=== PATIENT | male | born 1960 | race Caucasian/White ===

== ENCOUNTER 2018-02-04 12:32 | Emergency (ER) | payer MEDICAID, SELFPAY ==
[2018-02-04 12:33] VITALS: BP 123/74; PULSE 85; RESP 16; TEMP 36.8; O2SAT 95; BMI 26.8
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
--- NOTE | 2018-02-04 13:44 | ED.RN ---
message left for cm regarding pt unable to fill scripts d/t being homeless and no money. recharger aware
[2018-02-04] MEDS: predniSONE 20 MG Tablet 40 MG PO (14:22)
--- NOTE | 2018-02-04 14:22 | NURSING ---
cm in to see pt and give instructions on resources to have scripts filled. pt given 2 doses prednisone
--- NOTE | 2018-02-04 14:33 | CASEMGMT ---
Social Work Note SW received referral from PERRY Joseph about pt being homeless and for resources regarding filling scripts. SW in to meet with pt. SW introduced self and role at [facility]. Pt alert and orientated x4. Pt states that he has utilized [facility] before and states that he can't go back there due to using them too much. SW provided pt with information on [employer] and prescription assistance resources. Pt states that he has been at the [facility] before and won't go back there. Pt states that he is also working and will be moving into his new place in a few weeks. SW also provided pt with list of Food panties and resources in the event pt is struggling to get food. Pt thanked this SW. Pt states that he will be following up with [employer] on Tuesday. Pt denied additional needs or concerns. Celia Turner AOC DIRECTOR INTELLIGENCE OFFICER, AUTOMOTIVE PROJECT ENGINEER
== END 2018-02-04 14:24 | disposition home or self-care (01) ==
LOC: ED 13:22
PROVIDERS: Emergency Provider Emergency Medicine; Family Provider Family Medicine; PCP Family Medicine
DX: M79.89 Other specified soft tissue disorders (principal); Z76.0 Encounter for issue of repeat prescription; I77.6 Arteritis, unspecified
CPT/HCPCS: 99283

== ENCOUNTER 2018-06-04 00:34 | Emergency (ER) | payer MEDICAID, SELFPAY ==
[2018-06-04 00:35] VITALS: BP 146/101; PULSE 87; RESP 18; TEMP 37; O2SAT 94; BMI 28.3
--- NOTE | 2018-06-04 01:54 | ED.DCSUM_ITS ---
- ER Visit Summary Date of Service: 06/04/18 Chief Complaint: Bronchitis History of Present Illness: The patient is a 58 M who presents with a URI-like illness and bronchitis. He states he has been ill for 3 weeks with congestion rhinorrhea productive cough. He was nauseated tonight. He states he overslept for work because he was not feeling well. He states he is here because he needs a work note and also just needs something for his illness since he is not getting better. No fevers. No pain. Physical Examination: Afebrile vitals are normal Moist mucous membranes Heart regular rate and rhythm Lungs clear Abdomen soft Alert Test Results: Not indicated Emergency Department Course and Treatment: Given 3 weeks of persistent symptoms will trial a course of azithromycin. He was given Zofran here for nausea and a prescription for short course of the same. He understands to return for new or worsening symptoms. He was discharged. Treatment Plan: [] Disposition: Discharge Impression: Bronchitis This note was generated with [employer] dictation software. It may contain incorrect words, spelling, and punctuation that were not noted in review of the chart prior to signing ED Disposition - Plan for ED Patient: Chief Complaint: Cold Sx Referrals: Fahad Navarrete MD [Primary Care Provider] -
--- NOTE | 2018-06-04 01:54 | ED.DEP ---
ED Disposition - Plan for ED Patient: Chief Complaint: Cold Sx Instructions: Acute Bronchitis Prescriptions: Ondansetron [Zofran Odt] 4 mg PO Q8H PRN PRN #10 tab PRN Reason: Nausea Azithromycin [Zithromax Z-Luther] 250 mg PO UD #1 box Referrals: Fahad Navarrete MD [Primary Care Provider] -
[2018-06-04 02:02] VITALS: RESP 18
[2018-06-04] MEDS: Ondansetron ODT 4 MG Tablet PO (02:02)
--- OUTSIDE RECORDS SUMMARY | 2018-09-06 12:44 | XMS RPT_ITS ---
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 rewrite prednisone rx (had Rx stolen) 10-20 daily discussed and will start methotrexate 6 pills weekly take all at once Tuesday evening folic acid 1 mg daily -in the AM - this will reduce side effects of MTX see me again in about 6 weeks will check labs and monitor response then Santa Pickens MD, PhD Referring Provider: SANTA PICKENS [[id number]] Allergies As of Date: 01/16/2018 Noted Allergy Reaction environmental [Other] 02/15/2006 Date Reviewed: 01/16/2018 Reviewed by: Amanda Jenkins Ma - Fully Assessed Primary Visit Diagnosis:Rheumatoid arthritis of multiple sites without organ or system involvement with positive rheumatoid factor (HCC) [M05.79] Order(s):predniSONE (DELTASONE) 10 mg tabletTake 1 tablet by mouth once daily. can take an extra pill as neededDisp: 50 tabletRfl: 5 [START ON 01/20/2018] methotrexate 2.5 mg tabletTake 6 tablets by mouth every Tuesday. increase when directedDisp: 40 tabletRfl: 11 folic acid 1 mg tabletTake 1 tablet by mouth once daily.Disp: 30 tabletRfl: 11 Prescriptions as of 01/16/2018 Sig: PREDNISONE 10 MG TABLET Take 1 tablet by mouth once d* METHOTREXATE SODIUM 2.5 MG TA* Take 6 tablets by mouth every* FOLIC ACID 1 MG TABLET Take 1 tablet by mouth once d* TYLENOL ARTHRITIS ORAL Take by mouth. Take 2 tablet* Problem List As Of Date 01/16/2018 Noted Resolved HYPERLIPIDEMIA NEC/NOS [E78.5] PEPTIC ULCER NOS [533.9] ALCOHOL ABUSE-UNSPEC [F10.10] CARPAL TUNNEL SYNDROME [G56.00] INVALID FOR* LUMBAGO [M54.5] INVALID FOR* SURGERY FOLLOWUP NOS [Z09] INVALID FOR* Disorder of male genital organs [N50.9] More... RESTLESS LEGS SYNDROME [G25.81] Degeneration of lumbosacral intervertebral disc* More... Elevated rheumatoid factor [R76.8] INVALID FOR* Arthralgia [M25.50] INVALID FOR* Leukocytosis [D72.829] INVALID FOR* Malignant neoplasm of descended testis (HCC) [C*INVALID FOR* Rheumatoid arthritis of multiple sites without *INVALID FOR* Other instructions from your clinician: will rewrite prednisone rx (had Rx stolen) 10-20 daily discussed and will start methotrexate 6 pills weekly take all at once Tuesday evening folic acid 1 mg daily -in the AM - this will reduce side effects of MTX see me again in about 6 weeks will check labs and monitor response then Santa Pickens MD, PhD Prescriptions ordered this encounter Disp Refills Start End PREDNISONE 10 MG TABLET 50 t* 5 01/16/2018 Route: ORAL Sig: Take 1 tablet by mouth once daily. can take an extra pill as needed METHOTREXATE SODIUM 2.5 MG TABLET 40 t* 11 01/20/2018 Route: ORAL Sig: Take 6 tablets by mouth every Tuesday. increase when directed FOLIC ACID 1 MG TABLET 30 t* 11 01/16/2018 Route: ORAL Sig: Take 1 tablet by mouth once daily. Medications Discontinued During This Encounter predniSONE (DELTASONE) 10 mg tablet 14 t* 0 12/29/2016 01/16/2018 Route: ORAL Sig: Take 1 tablet by mouth once daily for 14 days. Disc: Duplicate Entry predniSONE (DELTASONE) 10 mg tablet 30 t* 3 11/03/2017 01/16/2018 Route: ORAL Sig: Take 1 tablet by mouth once daily. Disc: Reason for discontinue is not on file. Disposition: Return in about 6 weeks (around 02/27/2018). Follow-up and Disposition History Recorded Encounter Status:Closed by NELIA DELONG, SANTA PHD on 01/16/18 XR CHEST 2V FRONTAL/LAT Observed: 10/26/2017 Status: F Source: [place] 3:[address] [facility] REPOSITORY * * *Final Report* * * DATE OF EXAM: Oct 26 2017 3:14PM [id number] - XR CHEST 2V FRONTAL/LAT / PROCEDURE REASON: multiple diagnoses * * * * Physician Interpretation * * * * PA and lateral views of the chest are reviewed without previous comparison films. The cardiac size is not enlarged. The lung pascual are clear. There is no evidence of pleural fluid. The bony thorax appears intact. IMPRESSION: No acute process. Pad Extractor Tender: PSCB Transcribe Date/Time: Oct 26 2017 4:15P Dictated by : GOYO THORNE MD This examination was interpreted and the report reviewed and electronically signed by: GOYO THORNE MD on Oct 26 2017 4:16PM EST [id number] PROGRESS Observed: 10/26/2017 Status: COMPLETED Source: [place] 3:03 PM [facility] REPOSITORY HNO ID: [id number] Author: Ron Hanks (Rt), Tech Service: (none) Author Type: Theatrical Dresser Type: Progress Notes Filed: 10/26/2017 3:15 PM Note Text: Radiology Service Progress Note PATIENT NAME: Elizabeth Garland DATE OF SERVICE: October 26, 2017 TIME: 3:03 PM PATIENT IDENTITY VERIFICATION COMPLETED USING TWO (2) METHODS: Patient confirmed name verbally and Date of . PATIENT GENDER DATA: Male PATIENT RELEVANT IMPLANT DATA REVIEWED: Not Applicable RADIOLOGY DEPARTMENT: General X-ray: Exam(s) Completed: Chest X-Ray PERIPHERAL IV DATA: Not applicable SIGNED BY: RT Georgette October 26, 2017 3:03 PM CBC AND DIFFERENTIAL Collected: 09/13/2017 Status: F Source: [place] 3:17 PM [facility] REPOSITORY TYPE CODE TESTS RESULT OUT OF REFERENCE UNITS RANGE LAB WBC 3.70-11.00 k/uL WBC High 13.51 LAB RBC 4.20-6.00 m/uL RBC 4.87 LAB HGB 13.0-17.0 g/dL Hemoglobin 14.2 LAB HCT 39.0-51.0 % Hematocrit 44.3 LAB MCV 80.0-100.0 fL MCV 91.0 LAB MCH 26.0-34.0 pG MCH 29.2 LAB MCHC 30.5-36.0 g/dL MCHC 32.1 LAB RDWCV 11.5-15.0 % RDW-CV 14.2 LAB PLTCT 150-400 k/uL Platelet Count 397 LAB MPV 9.0-12.7 fL MPV 10.7 LAB ANEUT % Neut% 71.4 LAB AANEUT 1.45-7.50 k/uL Abs Neut High 9.64 LAB ALYMP % Lymph% 20.9 LAB AALYMP 1.00-4.00 k/uL Abs Lymph 2.83 LAB AMONO % Piatt% 5.7 LAB AAMONO <0.87 k/uL Abs Piatt 0.77 LAB AEOS % Eosin% 1.5 LAB AAEOS <0.46 k/uL Abs Eosin 0.20 LAB ABASO % Baso% 0.5 LAB AABASO <0.11 k/uL Abs Baso 0.07 LAB AUNRBC 0 /100 WBC NRBCs 0.0 LAB ABNRBC <0.01 k/uL Absolute nRBC <0.01 LAB DTYP DTYPE Auto Diff Performed By: #### CBCDIF, CMP, HREMOP, INFTBG, CCP #### [facility] [address] [place] [id number] COMP METABOLIC PANEL Collected: 09/13/2017 Status: F Source: [place] 3:[address] [facility] REPOSITORY TYPE CODE TESTS RESULT OUT OF REFERENCE UNITS RANGE LAB TP 6.3-8.0 g/dL Protein, Total 7.3 LAB ALB 3.9-4.9 g/dL Albumin 3.9 LAB CA 8.5-10.2 mg/dL Calcium, Total 9.6 LAB TBIL 0.2-1.3 mg/dL Bilirubin, Total 0.2 LAB ALKP 36-108 U/L Alkaline Phosphatase 85 LAB AST 14-40 U/L AST 18 LAB GLU 74-99 mg/dL Glucose 84 Result Comment: The [place] Diabetes Association (ADA) provides guidance for cutoff values for fasting glucose and random glucose. The ADA defines fasting as no caloric intake for at least 8 hours. Fas ting plasma glucose results between 100 to 125 mg/dL indicate increased risk for diabetes (prediabetes). Fasting plasma glucose results greater than or equal to 126 mg/dL meet the criteria for diagnosis of diabetes. In the absence of unequivocal hyperglycemia, results should be confirmed by repeat testing. In a patient with classic symptoms of hyperglycemia or hyperglycemic crisis, random plasma glucose results greater than or equal to 200 mg/dL meet the criteria for diagnosis of diabetes. Reference: Standards of Medical Care in Diabetes 2016, [place] [employer] Association. Diabetes Care. 2016.39(Suppl 1). LAB BUN 9-24 mg/dL BUN 18 LAB CRET 0.73-1.22 mg/dL Creatinine 0.90 LAB NA 136-144 mmol/L Sodium 141 LAB K 3.7-5.1 mmol/L Potassium 4.3 LAB CL 97-105 mmol/L Chloride 103 LAB CO2 22-30 mmol/L CO2 24 LAB AGAP 9-18 mmol/L Anion Gap 14 LAB ALT 10-54 U/L ALT 12 LAB GFRAA eGFR- Amer. >60 LAB GFRNAA . eGFR-All Other Races >60 Result Comment: eGFR (Estimated GFR) Units of measure: mL/min/1.73 meters squared eGFR is derived from the reexpressed MDRD Study equation using the following parameters: serum creatinine, age, gender and race. The creatinine assay has been calibrated to be traceable to IDMS. An eGFR <60 mL/min/1.73m2 for >3 months is consistent with chronic kidney disease. Refer to KDOQI guidelines for clinical interpretation. In patients with unstable renal function, e.g. those with acute kidney injury, the eGFR may not accurately reflect actual GFR. Performed By: #### CBCDIF, CMP, HREMOP, INFTBG, CCP #### [facility] [place] [address] HEPATITIS REMOTE PANEL Collected: 09/13/2017 Status: F Source: [place] 3:17 PM [facility] REPOSITORY TYPE CODE TESTS RESULT OUT OF REFERENCE UNITS RANGE LAB AHBCOT Negative Hep B Core Ab,Total Negative LAB AHCV Negative Hepatitis C Ab Negative IA LAB HBSAGR Negative HBsAg Negative LAB AHBSAG Negative HepB Surface Ab,Qual Negative Result Comment: NEGATIVE Performed By: #### CBCDIF, CMP, HREMOP, INFTBG, CCP #### [facility] [place] [address] TB BY QUANTIFERON Collected: 09/13/2017 Status: F Source: [place] 3:17 PM [facility] REPOSITORY TYPE CODE TESTS RESULT OUT OF REFERENCE UNITS RANGE LAB TBGRES Negative TB Result Negative LAB TBGUI <0.35 IU/mL TB Antigen 0.00 Response LAB TBGMIT >0.49 IU/mL Mitogen >10.00 Response LAB TBGINT Interpretation No evidence of current or previous infection with Mycobacterium tuberculosis. Performed By: #### CBCDIF, CMP, HREMOP, INFTBG, CCP #### [facility] [place] [id number] CCP ANTIBODY, IGG Collected: 09/13/2017 Status: F Source: [place] 3:17 PM [facility] REPOSITORY TYPE CODE TESTS RESULT OUT OF REFERENCE UNITS RANGE LAB CCPABG <20 Units High CCP >250 Antibody, IgG Result Comment: < 20 units: Negative 20-39 units: Weak Positive 40-59 units: Moderate Positive > 60 units: Strong Positive The following results were obtained with the [employer] QUANTA Lite CCP3 IgG DANIAL. Anti-CCP values obtained with different manufacturers' assay methods may not be used interchangeably. The magnitude of the reported IgG levels cannot be correlated to an endpoint titer. Performed By: #### CBCDIF, CMP, HREMOP, INFTBG, CCP #### [facility] [address] [place], [place] [address] PROGRESS Observed: 09/13/2017 Status: COMPLETED Source: [place] 2:09 PM [facility] REPOSITORY HNO ID: [id number] Author: Santa Pickens Service: (none) Author Type: Physician Type: Progress Notes Filed: 09/13/2017 3:14 PM Note Text: here for evaluation of polyarthritis; RF positive by sanitation manager in [place] noted pain in balls of feet 1-1.5 yrs ago sergio in the AM; was working but started to note more fatigue. then knees and hands. then sw hands and wrists about a year and nodules began to show up olec.prednisone started ~ 6mos. at 20 mg was controlled, at 10 mg helped some but not enough. now off pred taper takes about few hours before normalizes to baseline. cant make a fist feet tingle some no dyspnea change exercise tolerance no rashes no hx psoriasis raynauds - blue w cold which is new sleep poor - under stress w divorce FH: sister RA; mother RA; maternal GM RA PSH: testicular, CTS bilat ~20 yrs ago; PMH:testicular cancer 29 surg/xrt, gastric ulcer (ASA) + smoker 8 beers few times per week injection phobia PE thin, well developed no psoriasis skin or nails hair thin anicteric no erythema eom full r large axillary soft moveable node, smaller left ax nodes small scattered cervical pharyngeal mild erythema lungs clear no bruits no murmur abd nl no edema gait nl 1+ = dtrs sw r>l wrist mcps mild sw 2-4 pips sw 2-5 right>2,5 left hips ok elbows/ankles ok mtp tenderness + nodulosis r olec/forearm>>left pulses intact likely rheumatoid arthritis, but need some additional lab tests - he has significant axillary r>l adenopathy - while this may be from the presumed RA - need to look at a CXR for generalized adenopathy which would be of concern and depending on other labs, might warrant a node bx; get a chest xray at home (i ordered) prednisone short term - 10 mg daily - but as we discussed need to use a disease modifying medication. look up and read about Xeljanz as a treatment of the RA (pills) cc note to dr maurice Pickens MD, PhD REVIEW OF SYSTEMS: September 13, 2017 CONSTITUTIONAL: Fever: No Fatigue: Yes Pain: No EYES: Pain: No Redness: No Loss of vision: No Dryness: No EAR, NOSE, MOUTH, THROAT: Nose bleeds: No Hearing loss: No Sores in mouth: No Swallowing problems: No Dry mouth: No CARDIOVASCULAR: Chest pain: No Swelling in the feet or legs: Yes RESPIRATORY: Shortness of breath: No Pain with breathing: No Chronic cough: No Coughing up blood: No , GASTROINTESTINAL: Heartburn: No Nausea: No Diarrhea: No Blood in the stool or black stool: No Abdominal pain: No GENITOURINARY: Blood in urine: No Pain or burning on urination: No] MUSCULOSKELETAL: Joint pain: Yes Joint swelling: Yes Morning stiffness in joints: Yes Muscle weakness: Yes Back pain: Yes SKIN: Rashes: No Sun sensitive rashes: No Color changes of hands or feet in the cold: Yes Hair loss: No Nail changes: No NEUROLOGICAL: Headaches: No Dizziness: No Numbness or tingling: Yes Memory loss: No Seizures: No HEMATOLOGIC/LYMPHATIC: Swollen glands: No Anemia: No ALLERGIES/IMMUNOLOGIC: Allergies (other than medications): No Increased susceptibility to infection: No KNOWN MEDICAL CONDITIONS: Diabetes: No Thyroid disease: No High blood pressure: No CNOV Observed: 09/13/2017 Status: COMPLETED Source: [place] 1:[address] 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 then knees and hands. then sw hands and wrists about a year and nodules began to show up olec.prednisone started ~ 6mos. at 20 mg was controlled, at 10 mg helped some but not enough. now off pred taper takes about few hours before normalizes to baseline. cant make a fist feet tingle some no dyspnea change exercise tolerance no rashes no hx psoriasis raynauds - blue w cold which is new sleep poor - under stress w divorce FH: sister RA; mother RA; maternal GM RA PSH: testicular, CTS bilat ~20 yrs ago; PMH:testicular cancer 29 surg/xrt, gastric ulcer (ASA) + smoker 8 beers few times per week injection phobia PE thin, well developed no psoriasis skin or nails hair thin anicteric no erythema eom full r large axillary soft moveable node, smaller left ax nodes small scattered cervical pharyngeal mild erythema lungs clear no bruits no murmur abd nl no edema gait nl 1+ = dtrs sw rANDgt;l wrist mcps mild sw 2-4 pips sw 2-5 rightANDgt;2,5 left hips ok elbows/ankles ok mtp tenderness + nodulosis r olec/forearmANDgt;ANDgt;left pulses intact likely rheumatoid arthritis, but need some additional lab tests - he has significant axillary rANDgt;l adenopathy - while this may be from the presumed RA - need to look at a CXR for generalized adenopathy which would be of concern and depending on other labs, might warrant a node bx; get a chest xray at home (i ordered) prednisone short term - 10 mg daily - but as we discussed need to use a disease modifying medication. look up and read about Xeljanz as a treatment of the RA (pills) cc note to dr maurice Pickens MD, PhD REVIEW OF SYSTEMS: September 13, 2017 CONSTITUTIONAL: Fever: No Fatigue: Yes Pain: No EYES: Pain: No Redness: No Loss of vision: No Dryness: No EAR, NOSE, MOUTH, THROAT: Nose bleeds: No Hearing loss: No Sores in mouth: No Swallowing problems: No Dry mouth: No CARDIOVASCULAR: Chest pain: No Swelling in the feet or legs: Yes RESPIRATORY: Shortness of breath: No Pain with breathing: No Chronic cough: No Coughing up blood: No , GASTROINTESTINAL: Heartburn: No Nausea: No Diarrhea: No Blood in the stool or black stool: No Abdominal pain: No GENITOURINARY: Blood in urine: No Pain or burning on urination: No] MUSCULOSKELETAL: Joint pain: Yes Joint swelling: Yes Morning stiffness in joints: Yes Muscle weakness: Yes Back pain: Yes SKIN: Rashes: No Sun sensitive rashes: No Color changes of hands or feet in the cold: Yes Hair loss: No Nail changes: No NEUROLOGICAL: Headaches: No Dizziness: No Numbness or tingling: Yes Memory loss: No Seizures: No HEMATOLOGIC/LYMPHATIC: Swollen glands: No Anemia: No ALLERGIES/IMMUNOLOGIC: Allergies (other than medications): No Increased susceptibility to infection: No KNOWN MEDICAL CONDITIONS: Diabetes: No Thyroid disease: No High blood pressure: No Santa Pickens MD, PhD 09/13/2017 2:59 PM Signed likely rheumatoid arthritis, but need some additional lab tests get a chest xray at home (i ordered) prednisone short term - 10 mg daily - but as we discussed need to use a disease modifying medication. look up and read about Xeljanz as a treatment of the RA (pills) Referring Provider: TYLER JORGE ([facility]) [[id number]] Allergies As of Date: 09/13/2017 Noted Allergy Reaction environmental [Other] 02/15/2006 Date Reviewed: 09/13/2017 Reviewed by: Amanda Jenkins Ma - Fully Assessed Primary Visit Diagnosis:Elevated rheumatoid factor [R76.8] Other Visit Diagnoses:Malignant neoplasm of descended testis, unspecified laterality (HCC) [C62.10] Adenopathy [R59.1] Polyarthritis [M13.0] Order(s):CCP ANTIBODY IGG [SQCCP] Order #: [id number] FUTURE HEP REMOTE PANEL BL [SQHREMOP] Order #: [id number] FUTURE BLOOD TB SCREEN [SQINFTBG] Order #: [id number] FUTURE COMP METABOLIC PANEL [SQCMP] Order #: [id number] FUTURE CBC + DIFF [SQCBCDIF] Order #: [id number] FUTURE XR CHEST 2V FRONTAL/LAT [[id number]] Order #: [id number] FUTURE predniSONE (DELTASONE) 10 mg tabletTake 1 tablet by mouth once daily.Disp: 30 tabletRfl: 1 Prescriptions as of 09/13/2017 Sig: PREDNISONE 5 MG TABLET Take 1 tablet by mouth once d* TYLENOL ARTHRITIS ORAL Take by mouth. Take 2 tablet* PREDNISONE 10 MG TABLET Take 1 tablet by mouth once d* Problem List As Of Date 09/13/2017 Noted Resolved HYPERLIPIDEMIA NEC/NOS [E78.5] PEPTIC ULCER NOS [533.9] ALCOHOL ABUSE-UNSPEC [F10.10] CARPAL TUNNEL SYNDROME [G56.00] INVALID FOR* LUMBAGO [M54.5] INVALID FOR* SURGERY FOLLOWUP NOS [Z09] INVALID FOR* Disorder of male genital organs [N50.9] More... RESTLESS LEGS SYNDROME [G25.81] DISC DEGENERATION NOS [[id number]] More... Elevated rheumatoid factor [R76.8] INVALID FOR* Arthralgia [M25.50] INVALID FOR* Leukocytosis [D72.829] INVALID FOR* Malignant neoplasm of descended testis (HCC) [C*INVALID FOR* Other instructions from your clinician: likely rheumatoid arthritis, but need some additional lab tests get a chest xray at home (i ordered) prednisone short term - 10 mg daily - but as we discussed need to use a disease modifying medication. look up and read about Xeljanz as a treatment of the RA (pills) Prescriptions ordered this encounter Disp Refills Start End PREDNISONE 10 MG TABLET 30 t* 1 09/13/2017 11/12/2017 Route: ORAL Sig: Take 1 tablet by mouth once daily. Follow-up and Disposition History Recorded Encounter Status:Closed by NELIA DELONG, SANTA PHD on 09/13/17 PROGRESS Observed: 08/16/2017 Status: COMPLETED Source: [place] 11:00 AM [facility] REPOSITORY O ID: [id number] Author: Tyler Lang) Podlogar Service: (none) Author Type: Nurse Practitioner Type: Progress Notes Filed: 08/16/2017 12:21 PM Note Text: 08/16/2017 Patient presents with: Arthritis: feet, kness, hands elbows SUBJECTIVE: This is a 57 year old that is here today for above. Last seen in office by Dr. Frazier on 05/17/2018 for arthralgia. Has previously seen Dr. Duncan in January and they recommened further evaluation and was started on Prednisone 15 mg daily. He ran out of prednisone 3-4 days ago. Since runing out of prednisone has noticed increased swelling in right hand and right ankle/foot. He has not followed up with rheumatology d/t , as patient states, I'm going through a divorce and I do not have transportation, my took the car and this just doesn't take precedence over everything that is going on right now. When asked when he plans to see field sales consultant he says as soon as he can. Denies fever, weight loss, warmness or redness of joints, muscle weakness. Positive for morning stiffness and stiffness when he has been at rest for awhile which may last for up to an hour. Says he is fine if he is taking the prednisone. PAST MEDICAL HISTORY Diagnosis Date - Alcohol abuse, unspecified - Degeneration of intervertebral disc, site unspecified djd and ddd lumbar spine, see MRI's 09/24 - Other and unspecified hyperlipidemia - Peptic ulcer, unspecified site, unspecified as acute or chronic, without mention of hemorrhage or perforation - Restless legs syndrome (RLS) - Unspecified disorder of male genital organs h/o testicular cancer ALLERGIES Environmental [Other] MEDICATIONS Current Outpatient Prescriptions: predniSONE (DELTASONE) 10 mg tablet Take 1 tablet by mouth once daily. ACETAMINOPHEN (TYLENOL ARTHRITIS ORAL) Take by mouth. Take 2 tablets every 6 hours as needed for pain. No current facility-administered medications for this visit. Medications and allergies reviewed by this provider. SOCIAL HISTORY Social History Marital status: Spouse name: Jonna Years of education: college Number of children: 4 Occupational History Occupation Employer Comment press [employer] Social History Main Topics Smoking status: Current Every Day Smoker Packs/day: 1.00 Years: 20.00 Types: Cigarettes Smokeless status: Never Used Comment: started smoking age 17 Alcohol use: Yes Comment: recovering alcoholic - went 8 years without drinking. drinks currently twice a week Drug use: No REVIEW OF SYSTEMS GENERAL: No weight loss, malaise or fevers RESPIRATORY: Negative for cough, hemoptysis, wheezing, COPD, dyspnea or shortness of breath CARDIOVASCULAR: Negative for chest pain, leg swelling, hypertension, CHF or palpitations MUSCULOSKELETAL: See HPI All other reviewed and negative other than HPI. OBJECTIVE: BP 160/70 (BP Site: Left Arm, BP Position: Sitting, BP Cuff Size: Regular Adult) Pulse 60 Resp 18 Wt 96.7 kg (213 lb 1.9 oz). Vital signs reviewed by this provider. PHYSICAL EXAMINATION: General appearance: Well appearing, alert, in no acute distress, well-hydrated, well nourished. Lungs: Lungs clear to auscultation. No wheezing, rhonchi, rales Heart: RRR without murmur, gallop, or rubs. No ectopy Extremities: has moderate swelling to right hand digits. Left ankle with mild swelling as compared to the right. No joint effusions or warm, redness. Bilateral knees and elbows WNL. Musculoskeletal: Muscular strength intact Peripheral pulses: Normal ASSESSMENT/PLAN: 1. Polyarthritis - ICD9: 716.50, ICD10: M13.0 (primary diagnosis) - no red flag exam findings -red flag symptoms discussed, verbalizes understanding - discussed the importance of seeing rheumatology - prednisone 5 mg for 2 weeks then 5 mg every other day until gone - CONSULT TO RHEUM/IMMUN DISEASE- scheduled today in office for 08/26/2017 - follow-up as needed 2. Elevated rheumatoid factor - ICD9: 795.79, ICD10: R76.8 - as above - CONSULT TO RHEUM/IMMUN DISEASE 3. Screening for cholesterol level - ICD9: V77.91, ICD10: Z13.220 - LIPID PANEL BASIC 4. Screening for prostate cancer - ICD9: V76.44, ICD10: Z12.5 - PSA/PROSTSPECAG DIAG 5. Tinea corporis - ICD9: 110.5, ICD10: B35.4 - Treat with terbinafine 1% twice a day for 7 days- may repeat if necessary - Keep area of concern very dry. Ok to use OTC antifungal powder if area is moist - Follow up with PCP if symptoms persist or do not improved after 4-6 weeks of treatment. 6. Screening for diabetes mellitus - ICD9: V77.1, ICD10: Z13.1 - HGB A1C Tyler Jorge CNP Spoke with Dr. Navarrete regarding plan, as he had already told patient that he would not write for anymore prednisone and that it was imperative he saw rheumatology. Plan for prednisone taper discussed with Dr. Navarrete and he agrees with above plan. Prescription instructions reviewed with patient as applicable. Patient advised if symptoms do not improve or if symptoms worsen sooner, to contact their primary care physician. Potential red flag symptoms discussed with the patient. Reviewed appropriate action plan to take if red flag symptoms occur. Patient agreeable to treatment plan. During this patient visit I have spent approximately 20 minutes in counseling regarding treatment options and medications. ALLERGIES ALLERGIES DATE TYPE / CODE NAME / CODE REACTION SEVERITY SOURCE 06/04/2018 Drug No Known Unknown [facility] Allergy/[id number](S Allergies/F [facility] NOMED CT) [id number]( Hospital XNORM) Repository 02/15/2006 Miscellaneous OTHER [facility] Allergy/[id number]([facility] NOMED CT) Repository ENCOUNTERS ENCOUNTERS ADMIT/DISCHARGE ACCOUNT ADMITTING ENCOUNTER LOCATION SOURCE NUMBER CLASS 06/04/2018/06/04/20 [id number] Emergency [address] ing:ED Repository 03/06/2018/03/06/20 [id number] Ambulatory [address] Repository 03/06/2018/03/06/20 [id number] Ambulatory [address] Repository 03/06/2018/03/06/20 [id number] Ambulatory [address] Repository 02/04/2018/02/05/20 [id number] Emergency [address] ing:ED Repository 01/16/2018/01/17/20 [id number] Ambulatory [address] Repository 10/26/2017/10/27/19 [id number] Ambulatory [address] Repository 09/13/2017 [id number] Ambulatory [facility] Repository 09/13/2017/09/15/19 [id number] Ambulatory [address] Repository 08/16/2017/08/20/19 [id number] Ambulatory [address] Repository PAYERS PAYERS ENCOUNTER GUARANTOR PAYER SUBSCRIBER SOURCE 06/04/2018 ELIZABETH Booker Primary [address] Insurance:CARESOURCEP THOMPSONDOB: [facility] [place]: [id number] [id number] Repository [id number]: . (HP) Date:2018-06-04[address]ATTN: [place] [address]ER: 06/04/2018 Secondary NOT GIVENUNK [place] Insurance:SELF PAY [facility] Number: Effective Repository Date:2018-06-04 02/04/2018 ELIZABETH Booker Primary ELIZABETH [address] Insurance:CARESOURCEP THOMPSONDOB: [facility]: [id number] [id number]: . [id number] Repository () Date:2018-02-04[address]ATTN: [place] [address]IA: 02/04/2018 Secondary NOT GIVENUNK [place] Insurance:SELF PAY [facility] Number: Effective Repository Date:2018-02-04
== END 2018-06-04 02:04 | disposition home or self-care (01) ==
PROVIDERS: Emergency Provider Emergency Medicine; Family Provider Family Medicine; PCP Family Medicine
DX: J40 Bronchitis, not specified as acute or chronic (principal); M19.90 Unspecified osteoarthritis, unspecified site; Z72.0 Tobacco use
CPT/HCPCS: 99283

== ENCOUNTER 2018-07-21 07:49 | Emergency (ER) | payer MEDICAID, SELFPAY ==
[2018-07-21 07:50] VITALS: BP 140/74; PULSE 95; RESP 18; TEMP 37.2; O2SAT 95; BMI 29.0
[2018-07-21 07:57] VITALS: BP 140/74; PULSE 95; RESP 18; TEMP 37.2; O2SAT 92
--- NOTE | 2018-07-21 08:15 | RAD_ITS ---
STUDY: X-RAY CHEST REASON FOR EXAM: Male, 58 years old. Productive cough for one month. TECHNIQUE: PA and lateral views of the chest. COMPARISON: Prior comparison studies are not available for review at this time. FINDINGS: The lungs appear hyperexpanded. There appears be postobstructive atelectasis and airspace disease in the right middle lobe. This may represent a sequela of an endobronchial process. There also appears to be bilateral basilar subsegmental atelectasis and patchy airspace disease. There is no demonstrated pleural abnormality. Normal size heart. Normal mediastinum and beka. There is prominence of the pulmonary hilar arteries without peripheral pulmonary vascular congestion. There is atherosclerotic calcification of the aortic arch with tortuosity. There are diffuse degenerative changes of the visualized thoracic spine. Normal visualized ribs, clavicles, and shoulders. There is no demonstrated abnormality of the visualized soft tissue structures of the upper abdomen. RAD/Chest PA and Lateral IMPRESSION: 1. Post obstructive atelectasis and airspace disease in the right middle lobe. This could represent sequela of an endobronchial and/or right hilar process. 2. Bilateral basilar airspace disease and subsegmental atelectasis. 3. Suggest follow-up imaging after treatment to exclude underlying neoplasia. Electronically Signed: Frieda Griffin MD at 8:51 EST , Service support ,
--- NOTE | 2018-07-21 08:21 | ED.VISSUMM ---
- ER Visit Summary Date of Service: 07/21/18 Chief Complaint: Productive cough History of Present Illness: The patient is a 58 M who was seen on June 04, 2018. Patient presents because of productive cough of green colored sputum. He is a smoker. He states he is decreased markedly. He is presently living in a intermediate. He denies fever, chills night sweats. Does complain of headache. Denies photophobia, neck pain or neck stiffness. He does report headache. He denies chest discomfort. He denies leg pain or leg swelling. He reports shortness of breath at rest; however, he denies shortness of breath with activity. He denies GI symptoms. Please read written note for complete detail Physical Examination: Vital signs noted. Pulse ox is 92%. A smoker that is more than satisfactory. During examination his pulse ox was noted to be 94-95%. He appears in no distress. Head is atraumatic normocephalic. Pupils are equal round reactive. Extraocular muscles are intact. TMs are pearly white with landmarks noted. Nares patent with no drainage. Posterior pharynx without erythema or exudate. Uvula is midline. There is no dysphonia or dysphasia. Trachea is midline. There is no stridor with auscultation of the neck. Heart is regular without murmur, gallop or rub. S1 and S2 are normal. Lungs are clear to auscultation with good movement of air bilaterally. Abdomen soft nontender. There is no asymmetry, swelling, discoloration, leg vein distention, palpable cords or tenderness along the distribution of the deep venous system. Neuro exam is nonfocal. Test Results: Two-view chest x-ray interpreted by me revealed a right middle lobe pneumonia. Cardiac silhouette normal. Mediastinum normal. Osseous structures are normal. Emergency Department Course and Treatment: Since patient has a productive cough of green colored sputum for approximately 1 month we will obtain chest x-ray to evaluate for pneumonia. Treatment Plan: Doxycycline 100 mg twice daily times 7 days. Patient received first dose in the emergency department and was given a prescription Disposition: Discharge to home. Patient's port score is low and he is a candidate for outpatient therapy. Blood work was not obtained since he is not tachycardic, tachypneic, febrile and is pulse ox improved with ambulation. Impression: 1. Community-acquired pneumonia, right middle lobe 2. Tobacco use 3. History of rheumatoid arthritis This note was generated with [employer] dictation software. It may contain incorrect words, spelling, and punctuation that were not noted in review of the chart prior to signing ED Disposition - Plan for ED Patient: Disposition: Home or Assisted Living Instructions: ED Pneumonia Adult Prescriptions: Doxycycline Hyclate [Vibramycin] 100 mg PO BID #14 capsule Referrals: Fahad Navarrete MD [Primary Care Provider] - 3-5 Days if not improving Additional Instructions: It is in your best interest to stop smoking. Your prescription was electronically transmitted to [facility] your pharmacy of choice.
--- NOTE | 2018-07-21 08:24 | ED.DCSUM_ITS ---
- ER Visit Summary Date of Service: 07/21/18 Chief Complaint: Productive cough History of Present Illness: The patient is a 58 M who was seen on June 04, 2018. Patient presents because of productive cough of green colored sputum. He is a smoker. He states he is decreased markedly. He is presently living in a nursing home. He denies fever, chills night sweats. Does complain of headache. Denies photophobia, neck pain or neck stiffness. He does report headache. He denies chest discomfort. He denies leg pain or leg swelling. He reports shortness of breath at rest; however, he denies shortness of breath with activity. He denies GI symptoms. Please read written note for complete detail Physical Examination: Vital signs noted. Pulse ox is 92%. A smoker that is more than satisfactory. During examination his pulse ox was noted to be 94-95%. He appears in no distress. Head is atraumatic normocephalic. Pupils are equal round reactive. Extraocular muscles are intact. TMs are pearly white with landmarks noted. Nares patent with no drainage. Posterior pharynx without erythema or exudate. Uvula is midline. There is no dysphonia or dysphasia. Trachea is midline. There is no stridor with auscultation of the neck. Heart is regular without murmur, gallop or rub. S1 and S2 are normal. Lungs are clear to auscultation with good movement of air bilaterally. Abdomen soft nontender. There is no asymmetry, swelling, discoloration, leg vein distention, palpable cords or tenderness along the distribution of the deep venous system. Neuro exam is nonfocal. Test Results: Two-view chest x-ray interpreted by me revealed a right middle lo be pneumonia. Cardiac silhouette normal. Mediastinum normal. Osseous structures are normal. Emergency Department Course and Treatment: Since patient has a productive cough of green colored sputum for approximately 1 month we will obtain chest x-ray to evaluate for pneumonia. Treatment Plan: Doxycycline 100 mg twice daily times 7 days. Patient received first dose in the emergency department and was given a prescription Disposition: Discharge to home. Patient's port score is low and he is a candidate for outpatient therapy. Blood work was not obtained since he is not tachycardic, tachypneic, febrile and is pulse ox improved with ambulation. Impression: 1. Community-acquired pneumonia, right middle lobe 2. Tobacco use 3. History of rheumatoid arthritis This note was generated with [employer] dictation software. It may contain incorrect words, spelling, and punctuation that were not noted in review of the chart prior to signing ED Disposition - Plan for ED Patient: Disposition: Home or Assisted Living Instructions: ED Pneumonia Adult Prescriptions: Doxycycline Hyclate [Vibramycin] 100 mg PO BID #14 capsule Referrals: Fahad Navarrete MD [Primary Care Provider] - 3-5 Days if not improving Additional Instructions: It is in your best interest to stop smoking. Your prescription was electronically transmitted to [facility] your pharmacy of choice.
[2018-07-21 08:45] VITALS: O2SAT 95
[2018-07-21 09:00] VITALS: BP 139/74; PULSE 68; RESP 15; O2SAT 96
[2018-07-21] MEDS: Doxycycline 100 MG CAPSULE PO (09:01)
== END 2018-07-21 09:01 | disposition home or self-care (01) ==
PROVIDERS: Emergency Provider Emergency Medicine; Family Provider Family Medicine; PCP Family Medicine
DX: J18.9 Pneumonia, unspecified organism (principal); M06.9 Rheumatoid arthritis, unspecified; Z79.52 Long term (current) use of systemic steroids; F17.200 Nicotine dependence, unspecified, uncomplicated
CPT/HCPCS: 71046; 99284

== ENCOUNTER 2019-01-14 11:23 | Emergency (ER) | payer MEDICAID, SELFPAY ==
[2019-01-14 11:23] VITALS: BP 139/88; PULSE 99; RESP 16; TEMP 36.9; O2SAT 96; BMI 26.7
[2019-01-14 12:22] LABS: Absolute Lymphocyte Count 1.66 X10^3/uL (0.83-4.51); Absolute Neutrophil Count 19.5 X10^3/uL (2.0-7.7); Basophil# 0.07 X10^3/uL; Basophil% 0.3 % (0-1); Eosinophil# 0.05 X10^3/uL; Eosinophils% 0.2 % (0-5); Hematocrit 48.8 % (40-54); Hemoglobin 15.5 g/dL (13.0-16.5); Lymphocyte # 1.66 X10^3/ul (4.0); Lymphocyte % 7.3 % (19-41); Mean Corp Hgb Conc 31.8 g/dL (32-36); Mean Corpuscular Hgb 30.9 pg (27.0-32.0); Mean Corpuscular Volume 97.2 fL (80-94); Mean Platelet Vol. 11.1 fl (6.2-12.0); Monocyte# 1.33 X10^3/uL; Monocyte% 5.8 % (0-10); NRBC Flagged by Analyzer 0 % (0-5); Neutrophil % 85.5 % (47-70); Platelet Count 205 K/mm3 (150-450); RBC Distribution Width CV 14.6 % (11.6-14.6); RBC Distribution Width SD 52.4 fl (35.1-43.9); Red Blood Count 5.02 M/mm3 (4.6-6.2); White Blood Count 22.8 K/mm3 (4.4-11.0)
[2019-01-14] MEDS: 0.9% Normal Saline 1,000 ML 1000 ML IV (12:22)
[2019-01-14] MEDS: Ondansetron 4 MG/2 ML Vial IV (12:22)
[2019-01-14] MEDS: Morphine 4 MG/ML Syringe IV (12:22)
[2019-01-14] MEDS: Smz/Tmp Ds Tablet 1 TABLET PO (12:23)
[2019-01-14] MEDS: Cephalexin 250 MG Capsule 500 MG PO (12:23)
[2019-01-14 12:35] LABS: Anion Gap 4 (5-15); BUN 12 mg/dL (7-18); BUN/Creat Ratio 9.2 RATIO (10-20); Calcium,Total 8.9 mg/dL (8.5-10.1); Chloride 104 mmol/L (98-107); EST Glomerular Filtration Rate 61 mL/min (>60); Est Glom Filt Rate - Afr Amer 73 mL/min (>60); Estimated Creatinine Clearance 75.83 ml/min; Glucose 150 mg/dL (74-106); Potassium 3.8 mmol/L (3.5-5.1); Sodium Level 137 mmol/L (136-145)
[2019-01-14 12:52] LABS: Lactic Acid 1.3 mmol/L (0.4-2.0)
[2019-01-14] MEDS: 0.9% Normal Saline 1,000 ML 150 ML IV (13:05)
[2019-01-14 13:26] VITALS: BP 131/77; PULSE 84; RESP 22; O2SAT 97
--- NOTE | 2019-01-14 13:36 | PCM.CONS.B ---
- Consult Date of Consult: 01/14/19 - Reason for Consult Chief Complaint: left buttock abscess History of Present Illness: 58 y/o WM presents with left buttock abscess. Thinks he sustained a spider bite about 3 days ago. Complains of diarrhea, nausea, lower back pain and shortness of breath. Noted to have elevated WBC of 22.8k with left shift of differential Temp is 98.5 F in the ED. Patient complains of temperature elevations at home Past Medical History: history of alcohol abuse degenerative disc disease - lumbar history of PUD Restless leg syndrome history of testicular cancer Past Surgical History: orchiectomy for seminoma left and right carpal tunnel surgery Medications: motrin prn Allergies: Has no known drug allergies Social history: TOB use 1 ppd ETOH use recovering alcoholic, drinks twice per week Review of Systems: General - has been having fevers Cardiovascular denies chest pain Pulmonary positive TOB use, denies shortness of breath, denies coughing up blood Gastrointestinal denies abdominal pain Neurological denies numbness/weakness of extremities, denies seizures Genitourinary denies burning with urination, denies blood in urine Hematological denies spontaneous/prolonged bleeding Skin see HPI Musculoskeletal no muscle chages Endocrine pre-diabetes Psychological denies hallucinations Physical examination: Vital signs Temp General WD/WN WM in no apparent distress, alert and oriented, not septic appearing HEENT Normocephalic. EOM intact with sclera clear and no icterus noted. Neck is supple with no jugular venous distention noted. Trachea is midline. Lungs no labored breathing noted, such as retractions. No cough heard. Heart regular Abdomen soft and benign. Extremities no pitting edema noted. Back - 10-12 cm rounded localized left buttock erythema/swelling/tenderness Genitourinary/Rectal deferred Skin see above, otherwise normal skin integrity Neurological non focal. Psychological normal affect, patient is calm and appropriate Impression: left buttock abscess Discussion/Plan: I have discussed the above with the patient. I have offered the patient the procedure of incision and drainage of left buttock abscess. I have explained the procedure to the patient. I have counseled the patient as to the risks of the procedure, including but not limited to: continued infection, bleeding, injury to any blood vessels/nerves, scar tissue, poor healing, etc. the patient understands. He agrees to proceed. I have answered all questions to the patient?s satisfaction and the patient has no further questions.
--- NOTE | 2019-01-14 13:46 | ED.VIS.GEN ---
History of Present Illness Informant: Patient Onset: Weeks - 1 week Context: Gradual Onset Timing: Continuous Quality: Swollen and painful Location: Left buttock Current Severity: Severe Maximum Severity: Severe Worsened by: Sitting palpation and movement Relieved by: Nothing Associated Symptoms: Fevers and chills Narrative: 58-year-old male who denies any significant past medical history presents to the emergency department with concern for a spider bite or boil on his left buttock. It is been getting worse now for about a week. He has had fevers and chills since yesterday. No nausea or vomiting. He has not been lightheaded or dizzy. No constipation or diarrhea. No difficulty urinating. No back pain. Denies IV drug abuse. Denies any other review of systems at this time. Denies abdominal pain. Prior similar symptoms: No Recent Illness/Hospitalization: No <Gregorio Law - Last Filed: 01/14/19 13:46> <Clemente Diez - Last Filed: 01/14/19 15:05> <Aaron Desai - Last Filed: 01/14/19 17:00> Chief Complaint: Bite Past Medical History Prior records reviewed: Yes Past Medical History: None Surgical History: no surgical history Smoking Status: Heavy Smoker (>10/day) <Gregorio Law - Last Filed: 01/14/19 13:46> <Clemente Diez - Last Filed: 01/14/19 15:05> <Aaron Desai - Last Filed: 01/14/19 17:00> - Allergies and Home Meds Allergies/Adverse Reactions: Allergies No Known Allergies Allergy (Verified 01/14/19 11:27) Primary Care Physician: Mague Watkins MD [STAFF PHYSICIAN] - 2 Days for wound check Review of Systems All systems negative except as indicated General: Reports: Chills, Fever, Sweats Skin: Reports: Wounds <Gregorio Law - Last Filed: 01/14/19 13:46> Physical Exam Vital Signs/Narrative: Vital Signs Temp Pulse Resp BP Pulse Ox 01/14/19 13:26 84 22 H 131/77 H 97 01/14/19 11:23 98.5 F 99 16 139/88 H 96 Inital Vital Signs reviewed: Yes General: Well nourished, Well developed Head: Normocephalic, Atraumatic Eyes: Perrl, EOMI ENT: Moist mucous membranes Neck: Supple, Nontender Cardiovascular: Regular rate, Regular rhythm Respiratory: No distress, CTA bilaterally, Chest nontender Abdomen: Soft, Nontender, Nondistended, Normal bowel sounds, No masses : - - Patient has a large abscess to his left buttock. It is approximately 8 x 10 cm. There is some surrounding cellulitis. It is not perianal or perirectal. Normal external genitalia on visual inspection. Back: Nontender Extremities: Nontender, No edema Skin: Normal color, No rash Neurological: Alert, Oriented x3 <Gregorio Law - Last Filed: 01/14/19 13:46> Vital Signs/Narrative: Vital Signs Temp Pulse Pulse Pulse Pulse Pulse Pulse 01/14/19 14:19 78 01/14/19 13:49 73 77 84 79 77 78 01/14/19 13:26 84 01/14/19 11:23 98.5 F 99 Resp Resp Resp Resp Resp Resp BP 01/14/19 14:19 15 114/76 01/14/19 13:49 15 18 17 16 15 12 127/85 H 01/14/19 13:26 22 H 131/77 H 01/14/19 11:23 16 139/88 H BP BP BP BP BP Pulse Ox 01/14/19 14:19 99 01/14/19 13:49 127/85 H 135/88 H 108/73 112/73 114/76 98 01/14/19 13:26 97 01/14/19 11:23 96 <Clemente Diez - Last Filed: 01/14/19 15:05> Vital Signs/Narrative: Vital Signs Pulse Pulse Pulse Pulse Pulse Pulse Resp 01/14/19 15:04 89 17 01/14/19 14:19 78 15 01/14/19 13:49 73 77 84 79 77 78 15 01/14/19 13:26 84 22 H Resp Resp Resp Resp Resp BP BP 01/14/19 15:04 121/81 H 01/14/19 14:19 114/76 01/14/19 13:49 18 17 16 15 12 127/85 H 127/85 H 01/14/19 13:26 131/77 H BP BP BP BP Pulse Ox 01/14/19 15:04 99 01/14/19 14:19 99 01/14/19 13:49 135/88 H 108/73 112/73 114/76 98 01/14/19 13:26 97 <Aaron Desai - Last Filed: 01/14/19 17:00> Diagnostic/Tx/Re-eval Laboratory Results 01/14/19 01/14/19 01/14/19 12:10 12:10 12:10 WBC 22.8 H RBC 5.02 Hgb 15.5 Hct 48.8 MCV 97.2 H MCH 30.9 MCHC 31.8 L RDW Std Deviation 52.4 H RDW Coeff of Gus 14.6 Plt Count 205 MPV 11.1 Immature Gran % (Auto) 0.900 Neut % (Auto) 85.5 H Lymph % (Auto) 7.3 L [place] % (Auto) 5.8 Eos % (Auto) 0.2 Baso % (Auto) 0.3 Absolute Neuts (auto) 19.5 H Absolute Lymphs (auto) 1.66 Nucleated RBC % 0 Sodium 137 Potassium 3.8 Chloride 104 Carbon Dioxide 29.0 Anion Gap 4 L BUN 12 Creatinine 1.30 Estim Creat Clear Calc 75.83 Est GFR (MDRD) Af Amer 73 Est GFR (MDRD) Non-Af 61 BUN/Creatinine Ratio 9.2 L Glucose 150 H Lactic Acid 1.3 Calcium 8.9 - Medical Decision Making Seen and evaluated independently and in conjunction with physician housekeeper and laundry assistant. Agree with notes above unless documented otherwise. Given his symptoms, mild systemic symptoms of fever and malaise, and the size of this abscess, labs were obtained along with a lactate. He has a significant leukocytosis, but his lactate is within normal limits and he does not meet any Sirs/sepsis criteria. He is ambulatory and well-appearing. We gave him vancomycin in addition to a Bactrim, we suspect that his etiology is community-acquired MRSA and not a spider bite since there is no history to support that. We discussed with Dr. Watkins with surgery given the fact that the patient refused to let us perform I&D even with local anesthesia because he is afraid of needles and it hurts too bad and preferred to go to surgery. Dr. Watkins evaluated and said that she would be happy to perform the I&D at the bedside if we sedated him, all parties were in agreement, patient was consented discussed risks and benefits to sedation and procedure and he consented to it. It went uneventfully. He was packed and will follow up with Dr. Watkins in 2 days, we will place him on antibiotics and analgesics to use after he finishes his vancomycin here in the ER. He is comfortable with this plan. <Clemente Diez - Last Filed: 01/14/19 15:05> Procedures Procedure(s): Procedural sedation for abscess incision and drainage --patient was placed in prone position, Dr. Watkins initially gave him midazolam 2 mg given history of significant alcohol use. In addition to this, he was given propofol 100 mg, followed by another 40 and another 30 and aliquots, there were no complications, a total of 170 mg was given. He was adequately sedated for the procedure, and recovered uneventfully. <Clemente Diez - Last Filed: 01/14/19 15:05> ED Disposition <Gregorio Law - Last Filed: 01/14/19 13:46> <Clemente Diez - Last Filed: 01/14/19 15:05> <Aaron Desai - Last Filed: 01/14/19 17:00> - Plan for ED Patient: Disposition: Home or Assisted Living Diagnosis: Cutaneous abscess of buttock Instructions: ABSCESS, Incision and Drainage Prescriptions: Sulfamethoxazole/Trimethoprim [Bactrim Ds Tablet] 1 ea PO BID #20 tab Prescription Printed Hydrocodone Bitart/Apap 5-325 [Bailey 5MG-325MG] 1 tab PO Q6H PRN PRN 2 Days #10 tab PRN Reason: Pain Prescription Printed Hydrocodone Bitart/Apap 5-325 [Bailey 5MG-325MG] 1 tab PO Q6H PRN PRN 2 Days #10 tab PRN Reason: Pain Prescription Printed Referrals: Mague Watkins MD [STAFF PHYSICIAN] - 2 Days for wound check
[2019-01-14 13:49] VITALS: BP 108/73; BP 112/73; BP 114/76; BP 127/85; BP 135/88; PULSE 73; PULSE 77; PULSE 78; PULSE 79; PULSE 84; RESP 12; RESP 15; RESP 16; RESP 17; RESP 18; O2SAT 100; O2SAT 97; O2SAT 98; O2SAT 99
[2019-01-14] MEDS: Propofol 200 MG/20 ML Vial IV BOLUS (13:56)
[2019-01-14] MEDS: Midazolam 2 MG/2 ML Syringe IV (13:56)
[2019-01-14 14:19] VITALS: BP 114/76; PULSE 78; RESP 15; O2SAT 99
--- NOTE | 2019-01-14 14:20 | OP.PCM_ITS ---
Report of Operation Date of Procedure: 01/14/19 Pre-Operative Diagnosis: left buttock abscess Post-Operative Diagnosis: same Surgery/Procedure Performed:: incision and drainage of left buttock abscess Description of Surgical Findings:: necrotic fatty tissue, minimal purulent fluid, loculated cavity extending down to muscle Type of Anesthesia:: Local MAC - 1% xylocaine Anesthesiologist: Clemente Diez Specimen's removed: aerobic and anaerobic cultures of abscessed cavity Estimated Blood Loss (mL): < 10 ml Fluids Replaced: 100 ml RL Description of Procedure: After informed consent was given, the patient was on the [facility] in the ED. Appropriate time out protocol was followed. Patient was given IV sedation by the ED physician. The left buttock was prepped with betadyne and appropriate surgical drapes was placed. The skin and subcutaneous tissues in and around the lesion were then infiltrated with 1% xylocaine with epinephrine. A cruciate skin incision was then made with a 15 blade scalpel overlying the abscessed cavity. Of note, there was a small area of skin necrosis at the central aspect of the abscess. The incision was carried down through to the subcutaneous tissues. Blunt dissection was done to break down loculations. There was necrotic fatty tissue. There was minimal purulent fluid that was drained. Aerobic and anaerobic fluid was taken of this cavity. Hemostasis was achieved with pressure. The wound was densely packed with guaze. Dressing was applied over this. The patient tolerated the procedure well - Complications none noted
--- NOTE | 2019-01-14 14:25 | DCINST_ITS ---
Discharge Diet: No Restrictions Discharge Activity: Return to Normal Activity, May not drive while taking narcotic pain medications. Additional Dressing/Incision Instructions:: Leave dressing in place. Do not get wet. Sponge bathe only. Allergies/Adverse Reactions: Allergies No Known Allergies Allergy (Verified 01/14/19 11:27) Medications to take at Discharge Prednisone [Deltasone] 20 mg PO DAILY #30 tab 02/04/18 Primary Care Physician: Fahad Navarrete MD [Primary Care Provider] - Test Results: Test results from this visit will be discussed in further detail at your follow- up appointment, if applicable. Please Follow Up With: Yareli Kidd PA-C - When: to be seen on Tuesday
[2019-01-14 15:04] VITALS: BP 121/81; PULSE 89; RESP 17; O2SAT 99
--- NOTE | 2019-01-14 16:08 | ED.RN ---
VANCOMYCIN DELAYED DURING PROCEDURE. DELAYED DISCHARGE RELATED TO ANTIBIOTIC RUN TIME. Monty ROBBINS RN [id number]
[2019-01-14] MEDS: HYDROcodone Bitartrate/Apap 5/325 Tablet PO (16:43)
[2019-01-14 17:03] VITALS: BP 108/79; PULSE 80; RESP 16; O2SAT 99
--- NOTE | 2019-01-16 13:57 | ED.RN ---
Wound culture positive for MRSA. Pt home with bactrim and verified by Dr Duff. No additional tc required..
== END 2019-01-14 17:04 | disposition home or self-care (01) ==
PROVIDERS: Emergency Provider Physician Assistant Medical; Family Provider Family Medicine; PCP Family Medicine
DX: L02.31 Cutaneous abscess of buttock (principal); L03.317 Cellulitis of buttock; F17.200 Nicotine dependence, unspecified, uncomplicated
CPT/HCPCS: 10060; 36415; 80048; 83605; 85025; 87040; 87070; 87075; 87077; 87186; 87205; 96361; 96365; 96366; 96374; 96375; 99152; 99285; J7040; J2405

== ENCOUNTER 2019-02-26 20:54 | Emergency (ER) | payer MEDICAID, SELFPAY ==
[2019-02-26 20:54] VITALS: BP 163/86; PULSE 90; RESP 18; TEMP 36.6; O2SAT 97; BMI 26.6
--- NOTE | 2019-02-26 21:17 | ED.VISSUMM ---
- ER Visit Summary Date of Service: 02/26/19 Chief Complaint: Right leg redness History of Present Illness: The patient is a [address] Navarrete. He reports that he has redness to his right leg that was present when he woke up this morning. Describes a stinging pain is 7-10 at worst out of 10 currently. Is worsened by walking relieved by rest. He denies any numbness or weakness. Patient believes he may have been bitten by a brown recluse spider while he was in bed. Patient denies any constitutional symptoms. No fever, chills, nausea, or vomiting. Physical Examination: Vitals: Stable. Afebrile. General: Well-nourished and well-developed. Head: Normocephalic atraumatic. Neck: Supple, no lymphadenopathy. No JVD. Nontender. Cardiovascular: Regular rate and rhythm. No murmurs. Respiratory: No respiratory distress. Clear to auscultation bilaterally. Abdominal: Soft, nontender, nondistended, normal bowel sounds. No guarding, rebound, or peritoneal signs. Back: Nontender. Extremities: Lateral portion of the right leg shows an approximately 6 cm area of erythema. There is no induration or fluctuance. There is an approximately 2 mm defect in the center of this where he punctured it with a needle., no edema. Skin: Normal color, no rash. Neurologic: Alert and oriented ?3. Cranial nerves II through XII are intact. Normal strength and sensation. Psych: Normal affect. Emergency Department Course and Treatment: Patient had his wound cleansed and a dressing was placed. He is given doxycycline p.o. He refused pain medications. Treatment Plan: Patient be discharged on doxycycline. I discussed the notes does not look typical to of a brown recluse bite. He reports that he had a brown recluse bite previously that was drained by Dr. Watkins. He is instructed to follow-up his primary care physician in 2 days for another exam. He is also instructed to see Dr. Watkins if this worsens and he is still concerned that is of brown recluse bite. Return to the emergency department for any worsening symptoms. Disposition: To home in improved and stable condition. Impression: 1. Cellulitis right leg. This note was generated with [employer] software. It may contain incorrect words, spelling, and punctuation that were not noted in review of the chart prior to signing ED Disposition - Plan for ED Patient: Disposition: Home or Assisted Living Instructions: Cellulitis Prescriptions: Doxycycline 100 mg PO BID #14 cap Prescription Printed Referrals: Fahad Navarrete MD [Primary Care Provider] - 2 Days for wound check Mague Watkins MD [STAFF PHYSICIAN] -
[2019-02-26] MEDS: Doxycycline 100 MG CAPSULE PO (21:41)
[2019-02-26 21:44] VITALS: RESP 17
== END 2019-02-26 21:44 | disposition home or self-care (01) ==
PROVIDERS: Emergency Provider Emergency Medicine; Family Provider Family Medicine; PCP Family Medicine
DX: L03.115 Cellulitis of right lower limb (principal); M19.90 Unspecified osteoarthritis, unspecified site; F17.200 Nicotine dependence, unspecified, uncomplicated
CPT/HCPCS: 99283

== ENCOUNTER 2019-11-19 12:05 | Emergency (ER) | payer MEDICAID, SELFPAY ==
[2019-11-19 12:08] VITALS: BP 140/83; PULSE 92; RESP 16; TEMP 36.3; O2SAT 95; BMI 27.8
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
[2019-11-19] MEDS: Lidocaine 5% Patch 1 PATCH TOPICAL (13:22)
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
--- NOTE | 2019-11-19 14:13 | ED.RN ---
THIS NURSE ENTERED THE PT ROOM TO D/C PT AND PT WAS NOT IN THE ROOM, WAITING ROOM, OR DEPARTMENT. PT LEFT PRIOR TO RECIEVING HIS D/C INSTRUCTIONS AND PAPER PRESCRIPTION FOR LIDOCAINE PATCHES. RX RETURNED TO
== END 2019-11-19 14:14 | disposition home or self-care (01) ==
PROVIDERS: Emergency Provider Emergency Medicine; PCP Family Medicine
DX: S22.32XA Fracture of one rib, left side, initial encounter for closed fracture (principal); W10.9XXA Fall (on) (from) unspecified stairs and steps, initial encounter; Y93.9 Activity, unspecified; Y92.9 Unspecified place or not applicable; F17.200 Nicotine dependence, unspecified, uncomplicated
CPT/HCPCS: 71101; 99285

== ENCOUNTER → 2020-05-21 09:12 | Outpatient (CLI) | payer MEDICAID, SELFPAY ==
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
== END ==
PROVIDERS: PCP Family Medicine
DX: M05.79 Rheumatoid arthritis with rheumatoid factor of multiple sites without organ or systems involvement (principal); Z79.52 Long term (current) use of systemic steroids
CPT/HCPCS: 77080; 77085

== ENCOUNTER → 2020-12-15 17:15 | Outpatient (CLI) | payer MEDICAID, SELFPAY ==
--- NOTE | 2020-12-15 17:30 | MRI_ITS ---
EXAM: MR LEFT UPPER EXTREMITY WITHOUT AND WITH INTRAVENOUS CONTRAST, BRACHIAL PLEXUS CLINICAL INDICATION: Mesothelioma LEFT lung apex, LEFT brachial plexus involvement, left shoulder pain, numbness TECHNIQUE: Multiplanar and multisequence MR images of the left brachial plexus without and with intravenous contrast. This report was created using [employer] report generation technology. CONTRAST: 25ml Dotarem via IV COMPARISON: None. FINDINGS: LEFT BRACHIAL PLEXUS: Abnormal soft tissue infiltration with contrast enhancement of the left C8 and left T1 nerve roots. Normal trunks, divisions, and cords of the left brachial plexus. BONES/JOINTS: Unremarkable. No visualized cervical ribs. SOFT TISSUES: Large lobulated apical mass extending into the left upper thoracic perivertebral space. There is suspicious infiltration of the left C8 and left T1 nerve root sleeves of the left brachial plexus. VASCULATURE: No acute findings. Normal subclavian and axillary vessels. OPINION: Large lobulated left apical mass extending to the perivertebral space of the left upper thoracic spine with suspicious neoplastic infiltration of the left C8 and left T1 nerve root sleeves of the left brachial plexus. Electronically Signed: Josias Almazan MD at 9:39 EDT , Service support ,
== END ==
PROVIDERS: PCP Family Medicine; Referring Provider Internal Medicine Hematology & Oncology; Visit Provider Internal Medicine Hematology & Oncology
DX: C45.0 Mesothelioma of pleura (principal); G54.0 Brachial plexus disorders
CPT/HCPCS: 71552; 73220; A9575